=== PATIENT | male | born 1995 | race Caucasian/White ===

== ENCOUNTER 2020-03-12 09:24 | Outpatient (CLI) | payer OTHER, SELFPAY ==
--- NOTE | ~2020-03-12 | XR_ITS ---
EXAMINATION: XR chest 2V 03/12/2020 09:57 INDICATION: Shortness of breath, cough and chest pain PROCEDURE: 2 view chest COMPARISON: Comparison to multiple prior studies sequentially, with oldest reviewed study dated 12/18. FINDINGS: The lungs are clear. The cardiomediastinal silhouette is within normal limits. There are no pleural effusions. There is no pneumothorax suspected. IMPRESSION: 1: NO ACUTE CARDIOPULMONARY DISEASE. Reviewed, dictated and finalized at location B.
== END 2020-03-12 09:25 | disposition home or self-care (01) ==
LOC: ANHIMG 09:31
PROVIDERS: PCP Nurse Practitioner Family; Visit Provider Nurse Practitioner Family
DX: R06.02 Shortness of breath (principal); R05 Cough
CPT/HCPCS: 71046

== ENCOUNTER 2023-08-05 17:49 | Emergency (ER) | payer OTHER, MEDICAID, SELFPAY ==
[2023-08-05] VITALS (7 sets, daily range): BP systolic 132–140; BP diastolic 87–109; PULSE 87–104; RESP 11–26; TEMP 35.7; O2SAT 97–100
--- NOTE | 2023-08-05 | ECG_ITS ---
Measurements Intervals [place] Rate: 91 P: 38 CO: 163 QRS: 10 QRSD: 100 T: 0 QT: 338 QTc: 417 Interpretive Statements SINUS RHYTHM CONSIDER INFERIOR INFARCT, AGE INDETERMINATE BASELINE ARTIFACT- V1 ABNORMAL ECG COMPARED TO ECG 08/05/2023 17:57:25 NO SIGNIFICANT CHANGES Electronically Signed On 08-06-2023 17:40:59 CDT by Eusebio Mirza D.O.
--- NOTE | 2023-08-05 18:00 | ECG_ITS ---
Measurements Intervals [place] Rate: 86 P: -14 MT: 140 QRS: -24 QRSD: 90 T: -10 QT: 385 QTc: 461 Interpretive Statements SINUS RHYTHM VOLTAGE CRITERIA FOR LVH MINIMAL Q WAVES- HIGH LATERAL LEADS BASELINE WANDER- I, III, V4-V6 BORDERLINE ECG COMPARISON TO PRIOR ECG 12-06-18 16:32 SINUS RHYTHM NOW PRESENT Electronically Signed On 08-06-2023 7:44:11 CDT by Eusebio Mirza D.O.
[2023-08-05 18:10] LABS: Basophils Absolute Auto 0.1 K/mm3 (0.0-0.1); Basophils Percent Auto 0.5 % (0.2-1.2); Eosinophils Absolute Auto 0.2 K/mm3 (0-0.3); Eosinophils Percent Auto 0.7 % (0-4.4); Hematocrit 51.6 % (42.0-52.0); Hemoglobin 16.4 g/dL (14.0-18.0); Immature Granulocyte Percent A 0.9 % (0-0.5); Lymphocytes Absolute Auto 1.37 K/mm3 (0.9-3.2); Mean Corpuscular HGB Conc 31.8 g/dl (32-36); Mean Corpuscular Hemoglobin 29.4 pg (26-34); Mean Corpuscular Volume 92.6 fl (80-100); Mean Platelet Volume 10.7 fl (7.4-10.4); Monocytes Absolute Auto 1.2 K/mm3 (0.1-0.6); Monocytes Percent Auto 5.4 % (2.6-8.5); Neutrophils Absolute Auto 19.8 K/mm3 (1.3-6.7); Neutrophils Percent Auto 86.5 % (45.5-73.1); Platelet Count Result 311 k/mm3 (150-375); Red Blood Count 5.57 M/mm3 (4.6-6.20); Red Cell Distribution Width 13.2 % (11.5-14.5); White Blood Count 22.9 K/mm3 (4.5-10.0)
[2023-08-05 18:19] LABS: Alanine Aminotransferase 40 U/L (6-50); Albumin Level 5.2 g/dL (3.5-5.1); Alkaline Phosphatase 76 U/L (38-126); Anion Gap 18 mmol/L (8-16); Aspartate Amino Transferase 56 U/L (17-59); Bilirubin,Total 0.5 mg/dL (0.2-1.3); Blood Urea Nitrogen 16 mg/dL (9-20); Carbon Dioxide 21 mmol/L (22-30); Chloride 101 mmol/L (98-107); Estimated CRCL calculation 83 ml/min; Estimated Glomerular Filt Rate > 60; Glucose 220 mg/dL (65-110); Potassium 4.2 mmol/L (3.4-5.0); Sodium 140 mmol/L (137-145)
--- NOTE | 2023-08-05 18:42 | ED.GENADULT ---
HPI - General Adult General Chief complaint: Overdose <Naveen Thomas MD - Last Filed: 08/05/23 18:48> Stated complaint: drug usage - narcan given <Naveen Thomas MD - Last Filed: 08/05/23 18:48> Time Seen by Provider: 08/05/23 17:53 <Naveen Thomas MD - Last Filed: 08/05/23 18:48> History of Present Illness HPI narrative: 27-year-old with a history of opiate abuse with the above in from home. He was found unresponsive in his house by his dad later called 911 he did receive a 8 mg of nasal Narcan. Upon arrival patient is alert complaining of nausea. He states that he snorted fentanyl this afternoon. <Naveen Thomas MD - Last Filed: 08/05/23 18:48> Related Data Allergies/adverse reactions: Allergies Allergy/AdvReac Type Severity Reaction Status Date / Time No Known Allergies Allergy Unverified 12/17/18 18:15 <Naveen Thomas MD - Last Filed: 08/05/23 18:48> Review of Systems Review of Systems: All systems reviewed & are unremarkable except as noted in HPI and below <Naveen Thomas MD - Last Filed: 08/05/23 18:48> Constitutional: Constitutional: Reports no additional constitutional complaints <Naveen Thomas MD - Last Filed: 08/05/23 18:48> Eyes: Eyes: Reports no additional eye complaints <Naveen Thomas MD - Last Filed: 08/05/23 18:48> ENT: Reports system reviewed and no additional complaints, except as documented <Naveen Thomas MD - Last Filed: 08/05/23 18:48> Cardiovascular: Cardiovascular: Reports no additional cardiovascular complaints <Naveen Thomas MD - Last Filed: 08/05/23 18:48> Respiratory: Respiratory: Reports no additional respiratory complaints <Naveen Thomas MD - Last Filed: 08/05/23 18:48> Gastrointestinal: Gastrointestinal: Reports nausea <Naveen Thomas MD - Last Filed: 08/05/23 18:48> Musculoskeletal: Musculoskeletal: Reports no additional musculoskeletal complaints <Naveen Thomas MD - Last Filed: 08/05/23 18:48> Integumentary/Breasts: Skin/Breast: Reports system reviewed and no additional complaints, except as docu <Naveen Thomas MD - Last Filed: 08/05/23 18:48> PMFSH Social History Social History: Social History Substance use type: inhalants <Naveen Thomas MD - Last Filed: 08/05/23 18:48> Exam Narrative: GENERAL: Irritable, well-nourished, and in no acute distress. HEAD: Normocephalic, atraumatic. EYES: PERRLA and EOMI. ENT: Nares clear, no rhinorrhea or epistaxis. Mucous membranes moist. NECK: Supple. CHEST: Clear to auscultation. No respiratory distress. HEART: Regular rate and rhythm. No murmur heard. Normal peripheral pulses. ABDOMEN: Soft, nontender, nondistended, normal active bowel sounds. EXTREMITIES: Normal range of motion. No edema. SKIN: Warm, dry, no rash. NEURO: No focal deficits. Alert and oriented x3. PSYCH: Normal mood and affect. <Naveen Thomas MD - Last Filed: 08/05/23 18:48> Course Vital Signs Vital signs: Vital Signs Temperature 35.7 C L 08/05/23 17:50 Pulse Rate 104 H 08/05/23 17:50 Respiratory Rate 18 08/05/23 17:50 Blood Pressure 140/109 H 08/05/23 17:50 Pulse Oximetry 100 08/05/23 17:50 Oxygen Delivery Room Air 08/05/23 17:50 Temperature 35.7 C L 08/05/23 17:50 Pulse Rate 104 H 08/05/23 17:50 Respiratory Rate 17 08/05/23 18:02 Blood Pressure 140/109 H 08/05/23 17:50 Pulse Oximetry 100 08/05/23 17:50 Oxygen Delivery Room Air 08/05/23 18:01 <Naveen Thomas MD - Last Filed: 08/05/23 18:48> Vital Signs Temperature 35.7 C L 08/05/23 17:50 Pulse Rate 104 H 08/05/23 17:50 Respiratory Rate 18 08/05/23 17:50 Blood Pressure 140/109 H 08/05/23 17:50 Pulse Oximetry 100 08/05/23 17:50 Oxygen Delivery Room Air 08/05/23 17:50 Temperature 35.7 C L 08/05/23 17:50 Pulse Rate 104 H 08/05/23 17:50 Respiratory Rate 17 08/05/23 18:02 Blood Pressure 140/109
--- NOTE | 2023-08-05 19:16 | PC.NURSE ---
Pt AOx4, able to ambulate, and ready for DC. Jake notified. Pts dad called to come get him- no answer.
== END 2023-08-05 19:44 | disposition home or self-care (01) ==
PROVIDERS: Family Medicine; Emergency Provider Emergency Medicine; PCP Nurse Practitioner Family
DX: T40.411A Poisoning by fentanyl or fentanyl analogs, accidental (unintentional), initial encounter (principal); R94.31 Abnormal electrocardiogram [ECG] [EKG]
CPT/HCPCS: 36415; 80053; 85025; 93005; 99284

== ENCOUNTER 2024-11-28 11:42 | Emergency (ER) | payer OTHER, SELFPAY ==
[2024-11-28] VITALS (12 sets, daily range): BP systolic 117–145; BP diastolic 77–98; PULSE 92–120; RESP 13–22; TEMP 36.9; O2SAT 93–98
--- NOTE | ~2024-11-28 | CT_ITS ---
CLINICAL INDICATION: Abdominal pain, hemoptysis and leukocytosis COMPARISON: 03/12/2020. TECHNIQUE: Multiple contiguous axial images of the chest was performed without the administration of intravenous contrast. This CT examination was performed utilizing dose reduction techniques. DLP: 149 mGy-cm FINDINGS/OBSERVATIONS: LUNG:Patchy groundglass opacification within the bilateral upper, right middle and left lower lobes f or which multifocal pneumonia is suspected. HEART: The heart is of normal size, without pericardial effusion. MEDIASTINUM: No pathologically enlarged or morphologically suspicious lymph nodes are identified within the medias tinum, bilateral axilla, within the soft tissues of the anterior chest wall. SOFT TISSUES OF THE CHEST: Unremarkable. BONES OF THE CHEST: No acute fracture. No lytic or blastic lesions are identified. IMPRESSION: Multifocal pneumonia, as detailed above. Reviewed, dictated and finalized at location A.
--- NOTE | ~2024-11-28 | CT_ITS ---
CT of the Abdomen and Pelvis: Indication: Abdominal pain, hemoptysis Technique: 2.5 mm axial scans were obtained through the abdomen and pelvis following intravenous adm inistration of 100 cc of Omnipaque 350. Dose reduction technique was used on this scan by utilizing a utomated exposure control and iterative reconstruction technique. The dose-length product (DLP) was 1 81.85 mGy-cm. Findings: Scans through the lung bases demonstrate patchy consolidation the visualized right middle lobe, lingula, and left lower lobe. There is minimal involvement of the visualized right lower lobe. The liver, spleen, pancreas, gallbladder, adrenals and kidneys are within normal limits. No evidence of aortic aneurysm. No lymphadenopathy. No bowel obstruction or bowel wall thickening. There is no evidence to suggest acute appendicitis. Images through the pelvis were performed. Urinary bladder unremarkable. No pelvic mass seen. No ascit es. Impression: Patchy pneumonia in the visualized lungs, as detailed above. Consider dedicated chest CT as indicated . No other significant findings in the abdomen or pelvis. Reviewed, dictated and finalized at [facility]. Impression: Patchy pneumonia in the visualized lungs, as detailed above. Consider dedicated chest CT as indicated. No other significant findings in the abdomen or pelvis.
--- OUTSIDE RECORDS SUMMARY | 2024-11-28 11:45 | XMS_ITS | Clinical Summary ---
Author Organization [facility] Address [facility] [place] [address] Care Team Providers Care Pump Stitcher Name Role Phone Deanna Harrison [facility] Primary Care Provider + Allergies No known active allergies Medications capsaicin 0.025 % creamIndications :Neuropathic pain Apply topically 3 (three) times daily. 1 g 9 Active gabapentin 300 MG capsuleIndicatio ns:Right foot drop [The details of the medication are not available because there are pending changes by a home health clinician.] 240 capsule 9 Active Additional Information Patient taking differently:, 2 tabs po qAM, 2 tabs po midday and 4 tabs po QHS,Indications: Neuropathic pain, Reported on 01/25/2019 Ketorolac Tromethamine (TORADOL ORAL OR)Indications:P ain Take 10 mg by mouth every 6 (six) hours as needed (Pain). 9 Active traMADol 50 MG tabletIndication s:Pain Take 50 mg by mouth 2 (two) times daily. Take one tablet by mouth twice daily. 9 Active cyclobenzaprine 10 MG tabletIndication s:Muscle Spasm Take 10 mg by mouth 3 (three) times a day. 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 Social History Tobacco Use Types Packs/Day Years Used Date Smoking Tobacco: Never Assessed Sex and Gender Information Value Date Recorded Sex Assigned at Not on file Legal Sex Male 2:28 PM CDT Gender Identity Not on file Sexual Orientation Not on file Last Filed Vital Signs Vital Sign Reading Time Taken Comments Blood Pressure 120/84 02/19/2019 3:03 PM CDT Pulse 106 02/19/2019 3:03 PM CDT Temperature 36.9 C (98.4 F) 02/19/2019 3:03 PM CDT Respiratory Rate 18 02/19/2019 3:03 PM CDT Oxygen Saturation 98% 02/15/2019 2:30 PM CDT Inhaled Oxygen Concentration - - Weight 56.7 kg (125 lb) 02/08/2019 1:50 PM CDT Height 185.4 cm (6' 1) 01/12/2019 5:00 PM CDT Body Mass Index 16.49 01/12/2019 5:00 PM CDT Plan of Treatment Health Maintenance Due Date Last Done Comments Annual Physical 09/01/1999 Hepatitis C 2014 DTaP, Tdap and Td Vaccines ( 1 - Tdap) 09/01/2015 Hepatitis B Vaccines (1 of 3 - 19+ 3-dose series) 09/01/2015 COVID-19 Vaccine ( - 2023-2 5 season) 2024 Pneumococcal Vaccine: Pediat rics (0 to 5 Years) and At-Risk Patients (6 to 49 Years) Aged Out 01/06/2019 No longer eligi ble based on patient's age to complete this topic HPV Vaccines Aged Out No longer eligi ble based on patient's age to complete this topic Meningococcal B Vaccine Aged Out No l onger eligible based on patient's age to complete this topic Meningococcal Vaccine Aged Out No katharina umair eligible based on patient's age to complete this topic RSV Immunizations Under 20 Months Aged Out No longer eligible based on patient's age to complete this topic Insurance ID[employer] Advance Directives * Full Code (Latest Code Status on File) Date Activated Date Inactivated Comments 01/12/2019 6:05 PM 01/19/2019 2:31 PM Care Teams Pump Stitcher Relationship Specialty Start Date End Date Deanna Harrison, [employer] [address] [phone] PCP - General NURSE PRACTITIONER 02/06/19
--- OUTSIDE RECORDS SUMMARY | 2024-11-28 11:45 | XMS_ITS | Clinical Summary ---
Author Organization [facility] Address [address] [place] [address] Care Team Providers Care Clinical Nursing Coordinator Name Role Phone Unavailable Primary Care Provider Unavailabl e Source Comments [facility],non-owned Affiliates and Associated Physician Practices is amultiple site organization consisting of ambulatory clinics and hospital sitesin [place], [place], [place] and [place]. This disclosure is being madepursuant to the Care Everywhere program and may not contain all information available regarding this patient. Last updated 18.[facility] Allergies No known active allergies Medications * Be aware that medications may not be up to date on this document. Alwaysverify current medications with the patient. hydrOXYzine hcl (ATARAX) 25 MG tablet Take 1 tablet by mouth 4 times daily as needed 9 Active acetaminophen (TYLENOL) 325 MG tablet Take 1 tablet by mouth every 4 hours as needed Maximum allowable Acetaminophen amount = 4 Grams (4000 mg) / 24 hours. 9 Active gabapentin (NEURONTIN) 100 MG capsule Take 1 capsule by mouth 3 times daily 9 Active polyethylene glycol 3350 (MIRALAX) packet 17 g by Enteral Tube route once daily 9 Active melatonin 3 MG tablet Take 1 tablet by mouth nightly as needed for Insomnia 9 Active Active Problems Problem Noted Date Diagnosed Date Attention to tracheostomy tube 12/28/2018 Acute respiratory failure with hypoxia 9 Immunizations Immunization Administration Dates Next Due PNEUMOCOCCAL PPSV23 01/06/2019 Family History Medical History Relation Name Comments Cancer - Colon Paternal Grandfather Alzheimer's Disease Paternal Grandmother Relation Name Status Comments Paternal Grandfather Paternal Grandmother Social History Tobacco Use Types Packs/Day Years Used Date Smoking Tobacco: Every Day Cigarettes Smokeless Tobacco: Never Alcohol Use Standard Drinks/Week Comments Yes 0 (1 standard drink = 0.6 oz pur e alcohol) occasionally Sex and Gender Information Value Date Recorded Sex Assigned at Not on file Legal Sex Male 3:54 PM CDT Gender Identity Not on file Sexual Orientation Not on file Last Filed Vital Signs Vital Sign Reading Time Taken Comments Blood Pressure 149/96 01/12/2019 3:56 PM CDT Pulse 97 01/12/2019 3:56 PM CDT Temperature 36.6 C (97.8 F) 01/12/2019 3:56 PM CDT Respiratory Rate 20 01/12/2019 3:56 PM CDT Oxygen Saturation 100% 01/12/2019 3:56 PM CDT Inhaled Oxygen Concentration 21% 01/05/2019 4 :00 PM CDT Weight 48.1 kg (106 lb 0.7 oz) 01/05/2019 8:00 A M CDT Height 182.9 cm (6' 0.01) 01/05/2019 8:00 AM CD T Body Mass Index 14.38 01/05/2019 8:00 AM CDT Plan of Treatment Health Maintenance Due Date Last Done Comments HEPATITIS C SCREENING 08/27/2014 DTAP/TDAP/TD VACCINES (1 - Tdap) 09/01/2015 HEPATITIS B VACCINE (1 of 3 - 19+ 3-dose series) 09/01/2015 COVID-19 VACCINE ( - 2023-2 5 season) 2024 DEPRESSION SCREENING 05/23/2024 INFLUENZA VACCINE (#1) 2025 ZOSTER VACCINE (1 of 2) 2046 PNEUMOCOCCAL VACCINE Aged Out 01/06/2019 No long er eligible based on patient's age to complete this topic HIV SCREENING Completed 01/12/2019, 01/10/2019, 01/08/2019 HIB VACCINE Aged Out No longer eligi ble based on patient's age to complete this topic HPV VACCINE Aged Out No longer eligi ble based on patient's age to complete this topic MENINGOCOCCAL (Group B) VACCINE SHARED DECISION-MAKING Aged Out No longer eligible based on patient's age to complete this topic MENINGOCOCCAL GROUPS A/C/Y/W VACCINE Aged Out No longer eligible b ased on patient's age to complete this topic Procedures Procedure Name Priority Date/Time Associated Diagnosis Comments HIV-1 HIV-2 ANTIGEN/ANTIBODY AM Draw 01/12/2019 7:36 AM CDT from Last 3 Months or Most Recently Relevant to Health Maintenance Results * HIV-1 HIV-2 ANTIGEN/ANTIBODY (01/12/2019 7:36 AM CDT) HIV Antigen/Antibod y 1 & 2 Non-reacti ve Non-react danny 01/12/2019 8:32 AM CDT [facility] Comment: Neither HIV-1 p24 Antigen nor HIV-1/HIV-2 Antibodies are detected. Blood BLOOD SPECIMEN / Unknown Lab Venipuncture / Unknown 01/12/2019 7:36 AM CDT 01/12/2019 7:46 AM CDT us Santo Stapleton MD LAB - HEMATOLOGY ORDERABLES Fi nal Result Performing Organization Address City/State/[facility] Co de Phone Number [address] [phone] from Last 3 Months or Most Recently Relevant to Health Maintenance Insurance Advance Directives * Full Code (Latest Code Status on File) Date Activated Date Inactivated Comments 12/28/2018 6:30 AM 01/12/2019 5:50 PM
--- NOTE | 2024-11-28 12:13 | ED.GENADULT ---
HPI - General Adult General Chief complaint: Abdominal Pain Stated complaint: multiple complaints, fentanyl withdrawal? Time Seen by Provider: 11/28/24 12:00 History of Present Illness HPI narrative: 29-year-old male with history of methamphetamine and fentanyl abuse present to the emergency department for evaluation nausea vomiting generalized body aches. Patient states he has not used methamphetamine or fentanyl the past 2-3 days. Patient is unsure if he is going to seek rehab at this time. Patient states he has been coughing up thick mucus and has been spitting up some blood. Does have some abdominal tenderness to palpation but patient also does complain of myalgias. Patient reports decreased p.o. intake. Related Data Allergies Allergy/AdvReac Type Severity Reaction Status Date / Time amoxicillin Allergy Mild Rash Verified 11/28/24 13:49 Review of Systems Review of Systems: All systems reviewed & are unremarkable except as noted in HPI and below PMFSH Social History Social History Substance use type: inhalants Exam Narrative: APPEARANCE: Cachectic-appearing HEAD: normocephalic, atraumatic. EYES: PERRLA/EOMI, conjunctivae clear. NOSE: Normal no drainage EARS:TMS clear with good light reflex. THROAT: Pharynx clear, no exudate. NECK: Supple. No adenopathy, no masses. RESPIRATORY: Airway patent, respirations nonlabored. Clear to auscultation bilaterally, no rales, rhonchi, wheezing. CARDIOVASCULAR: Tachycardia ABDOMINAL: Diffuse abdominal tenderness to palpation MUSCULOSKELETAL: Moves all extremities. Strength/ROM intact, No edema, No calf tenderness. NEURO: Alert. Cranial nerves II through XII intact. Grossly intact SKIN: Warm, dry. Normal Color Course Vital Signs Vital signs: Vital Signs Pulse Rate 102 H 11/28/24 11:47 Respiratory Rate 16 11/28/24 11:47 Pulse Oximetry 95 11/28/24 11:47 Temperature 98.4 F 11/28/24 11:50 Pulse Rate 115 H 11/28/24 15:03 Respiratory Rate 22 H 11/28/24 15:03 Blood Pressure 117/77 11/28/24 15:03 Pulse Oximetry 97 11/28/24 15:03 Oxygen Delivery Room Air 11/28/24 11:50 Medical Decision Making [facility] Narrative Medical decision making narrative: 29-year-old male present to the emergency department for evaluation low-grade fever, abdominal pain and concern for opiate and amphetamine withdrawal. Patient is currently afebrile but does have a leukocytosis of 17.5 and hemoglobin of 16.5. Patient has an INR of 1.5, patient does have mild elevations in ALT and AST with normal lipase and normal T bili. UA was negative for infection. Patient was positive for strep and CT scan was concerning for pneumonia. Patient does have an underlying allergy to Augmentin. Patient was started on the mycin to help cover strep throat and addition to Omnicef to cover for the community-acquired pneumonia. Patient was updated results of his workup patient is comfortable plan for discharge home. Differential Diagnosis Differential Diagnosis: Pneumonia, COVID, RSV, influenza, strep throat, UTI, colitis, diverticulitis Vital Signs Vital Signs: Vital Signs Pulse Rate 102 H 11/28/24 11:47 Respiratory Rate 16 11/28/24 11:47 Pulse Oximetry 95 11/28/24 11:47 Temperature 98.4 F 11/28/24 11:50 Pulse Rate 115 H 11/28/24 15:03 Respiratory Rate 22 H 11/28/24 15:03 Blood Pressure 117/77 11/28/24 15:03 Pulse Oximetry 97 11/28/24 15:03 Oxygen Delivery Room Air 11/28/24 11:50 Lab Data Lab results reviewed: Yes I reviewed the patient's lab results. 11/28/24 12:04 11/28/24 12:04 Labs: Lab Results 11/28/24 11/28/24 11/28/24 Range/Units 12:04 12:40 12:41 WBC 17.5 H (4.5-10.0) K/mm3 RBC 5.72 (4.6-6.20) M/mm3 Hgb 16.5 (14.0-18.0) g/dL Hct 49.5 (42.0-52.0) % MCV 86.5 (80-100) fl MCH 28.8 (26-34) pg MCHC 33.3 (32-36) g/dl RDW 12.7 (11.5-14.5) % Plt Count 276 (150-375) k/mm3 MPV 11.4 H (7.4-10.4) fl Immature Gran % (Auto) 0.4 (0-0.5) % Neut % (Auto) 82.9 H (45.5-73.1) % Lymph % (Auto) 9.8 L (18.3-44.2) % [place] % (Auto) 6.3 (2.6-8.5) % Eos % (Auto) 0.1 (0-4.4) % Baso % (Auto) 0.5 (0.2-1.2) % Lymph # (Auto) 1.72 (0.9-3.2) K/mm3 [place] # (Auto) 1.1 H (0.1-0.6) K/mm3 Eos # (Auto) 0.0 (0-0.3) K/mm3 Baso # (Auto) 0.1 (0.0-0.1) K/mm3 Abs Immat Gran (auto) 0.07 H (0.00-0.031) K/mm3 Absolute Neuts (auto) 14.5 H (1.3-6.7) K/mm3 Absolute Nucleated RBC 0.000 (0.0-0.012) K/mm3 Nucleated RBC % 0.0 (0.0-0.2) % PT 17.7 H (11.1-14.7) Seconds INR 1.5 APTT 30.6 (22.3-36.8) Seconds Sodium 137 (137-145) mmol/L Potassium 4.4 (3.4-5.0) mmol/L Chloride 98 (98-107) mmol/L Carbon Dioxide 30 (22-30) mmol/L Anion Gap 9 (4-12) mmol/L BUN 17 (9-20) mg/dL Creatinine 0.81 (0.7-1.3) mg/dL Estim Creat Clear Calc 95 ml/min Estimated GFR > 60 (59 - ) Glucose 100 (65-110) mg/dL Calcium 9.0 (8.4-10.2) mg/dL Total Bilirubin 0.9 (0.2-1.3) mg/dL AST 279 H (17-59) U/L ALT 277 H (6-50) U/L Alkaline Phosphatase 85 (38-126) U/L Total Protein 7.3 (6.3-8.2) g/dL Albumin 4.5 (3.5-5.1) g/dL Lipase 58 (23-300) U/L Urine Color (Yellow) Urine Appearance (Clear) Urine pH (5.0-9.0) Ur Specific [place] (1.001-1.035) Urine Protein (Negative) mg/dL Urine Glucose (UA) (Negative) mg/dL Urine Ketones (Negative) mg/dL Ur Blood (Man) (Negative) Urine Nitrate (Negative) Urine Bilirubin (Negative) Urine Urobilinogen (<2.0) mg/dL Leukocyte Esterase Rfl (Negative) MYRA/UL Urine RBC (0-2) /hpf Urine WBC (0-3) /hpf Ur Squamous Epith Cells (Few) /hpf Urine Bacteria /hpf Urine Casts Influenza A (RT-PCR) Negative (Negative) Influenza B (RT-PCR) Negative (Negative) RSV (RT-PCR) Negative (Negative) SARS-CoV-2 RNA (RT-PCR) Negative (Negative) Group A Strep (PCR) Detected A (Negative) 11/28/24 Range/Units 14:31 WBC (4.5-10.0) K/mm3 RBC (4.6-6.20) M/mm3 Hgb (14.0-18.0) g/dL Hct (42.0-52.0) % MCV (80-100) fl MCH (26-34) pg MCHC (32-36) g/dl RDW (11.5-14.5) % Plt Count (150-375) k/mm3 MPV (7.4-10.4) fl Immature Gran % (Auto) (0-0.5) % Neut % (Auto) (45.5-73.1) % Lymph % (Auto) (18.3-44.2) % [place] % (Auto) (2.6-8.5) % Eos % (Auto) (0-4.4) % Baso % (Auto) (0.2-1.2) % Lymph # (Auto) (0.9-3.2) K/mm3 [place] # (Auto) (0.1-0.6) K/mm3 Eos # (Auto) (0-0.3) K/mm3 Baso # (Auto) (0.0-0.1) K/mm3 Abs Immat Gran (auto) (0.00-0.031) K/mm3 Absolute Neuts (auto) (1.3-6.7) K/mm3 Absolute Nucleated RBC (0.0-0.012) K/mm3 Nucleated RBC % (0.0-0.2) % PT (11.1-14.7) Seconds INR APTT (22.3-36.8) Seconds Sodium (137-145) mmol/L Potassium (3.4-5.0) mmol/L Chloride (98-107) mmol/L Carbon Dioxide (22-30) mmol/L Anion Gap (4-12) mmol/L BUN (9-20) mg/dL Creatinine (0.7-1.3) mg/dL Estim Creat Clear Calc ml/min Estimated GFR (59 - ) Glucose (65-110) mg/dL Calcium (8.4-10.2) mg/dL Total Bilirubin (0.2-1.3) mg/dL AST (17-59) U/L ALT (6-50) U/L Alkaline Phosphatase (38-126) U/L Total Protein (6.3-8.2) g/dL Albumin (3.5-5.1) g/dL Lipase (23-300) U/L Urine Color Yellow (Yellow) Urine Appearance Clear (Clear) Urine pH 6.5 (5.0-9.0) Ur Specific [place] > 1.045 H (1.001-1.035) Urine Protein Trace (Negative) mg/dL Urine Glucose (UA) Negative (Negative) mg/dL Urine Ketones Trace H (Negative) mg/dL Ur Blood (Man) Negative (Negative) Urine Nitrate Negative (Negative) Urine Bilirubin Negative (Negative) Urine Urobilinogen 1.0 (<2.0) mg/dL Leukocyte Esterase Rfl Negative (Negative) MYRA/UL Urine RBC 0-2 (0-2) /hpf Urine WBC 0-5 (0-3) /hpf Ur Squamous Epith Cells None seen (Few) /hpf Urine Bacteria None seen /hpf Urine Casts 0-2 Influenza A (RT-PCR) (Negative) Influenza B (RT-PCR) (Negative) RSV (RT-PCR) (Negative) SARS-CoV-2 RNA (RT-PCR) (Negative) Group A Strep (PCR) (Negative) Imaging Data Radiologist's impression: Impressions Abdomen/Pelvis CT 11/28/24 13:04 Impression: Patchy pneumonia in the visualized lungs, as detailed above. Consider dedicated chest CT as indicated. No other significant findings in the abdomen or pelvis. Chest CT 11/28/24 14:21 IMPRESSION: Multifocal pneumonia, as detailed above. Discharge Plan Discharge Clinical Impression: Strep throat, Pneumonia Patient Disposition: Home Condition: Stable Instructions: Antibiotic Form, Strep Throat (ED), Bacterial Pneumonia (DC) Additional Instructions: Continue to avoid fentanyl and methamphetamine. Take acetaminophen and ibuprofen for pain control. Antibiotics as directed until completed. Have close follow-up with your primary care physician. If you have any worsening symptoms then please call or return to the emergency department. Patient Language: Mexican Prescriptions: New azithromycin 250 mg tablet See Rx Instructions .ROUTE .COMPLEX Qty: 6 0RF Rx Instructions: For 250 mg dose pack: take 500 mg today (day 1), then 250 mg for 4 days (days 2-5) cefdinir 300 mg capsule 300 mg PO Q12H 7 Days Qty: 14 0RF No Action naloxone [Narcan] 4 mg/actuation spray,non-aerosol 4 mg intranasal Q2M PRN (Reason: opioid overdose) Qty: 2 0RF Rx Instructions: spray 1 dose into ONE nostril; alternate nostrils w each dose until help arrives Follow-up/Referrals: Deanna Harrison APRN [Primary Care Provider] -
--- OUTSIDE RECORDS SUMMARY | 2024-11-28 12:19 | XMS_ITS | Clinical Summary ---
Author Organization [facility] Address [address] [place] [address] Care Team Providers Care Cigar Packing Examiner Name Role Phone Unavailable Primary Care Provider Unavailabl e Source Comments [facility],non-owned Affiliates and Associated Physician Practices is amultiple site organization consisting of ambulatory clinics and hospital sitesin [place], [place], [place] and [place]. This disclosure is being madepursuant to the Care Everywhere program and may not contain all information available regarding this patient. Last updated 18.[facility] Allergies No known active allergies Medications * [...] ve Non-react danny 01/12/2019 8:32 AM CDT [facility] Comment: Neither HIV-1 p24 Antigen nor HIV-1/HIV-2 Antibodies are detected. Blood BLOOD SPECIMEN / Unknown Lab Venipuncture / Unknown 01/12/2019 7:36 AM CDT 01/12/2019 7:46 AM CDT us Santo Stapleton MD LAB - HEMATOLOGY ORDERABLES Fi nal Result Performing Organization Address City/State/[facility] Co de Phone Number [address] [phone] from Last 3 Months or Most Recently Relevant to Health Maintenance Insurance Advance Directives * Full Code (Latest Code Status on File) Date Activated Date Inactivated Comments 12/28/2018 6:30 AM 01/12/2019 5:50 PM
--- OUTSIDE RECORDS SUMMARY | 2024-11-28 12:19 | XMS_ITS | Clinical Summary ---
Author Organization [facility] Address [facility] [place] [address] Care Team Providers Care Carpet Jack Name Role Phone Deanna Harrison [facility] Primary Care Provider + Allergies No [...] 6:05 PM 01/19/2019 2:31 PM Care Teams Carpet Jack Relationship Specialty Start Date End Date Deanna Harrison, SUMMER LAW ASSOCIATE-BC [address] [phone] PCP - General NURSE PRACTITIONER 02/06/19
[2024-11-28 12:20] LABS: Hematocrit 49.5 % (42.0-52.0); Hemoglobin 16.5 g/dL (14.0-18.0); Immature Granulocyte Percent A 0.4 % (0-0.5); Lymphocytes Absolute Auto 1.72 K/mm3 (0.9-3.2); Mean Corpuscular HGB Conc 33.3 g/dl (32-36); Mean Corpuscular Hemoglobin 28.8 pg (26-34); Mean Corpuscular Volume 86.5 fl (80-100); Nucleated Red Blood Cells Absolute Auto 0.000 K/mm3 (0.0-0.012); Nucleated Red Blood Cells Perc 0.0 % (0.0-0.2); Platelet Count Result 276 k/mm3 (150-375); Red Blood Count 5.72 M/mm3 (4.6-6.20); White Blood Count 17.5 K/mm3 (4.5-10.0)
[2024-11-28] MEDS: ONDANSETRON INJ 4 MG/2 ML VIAL IV PUSH (12:25)
[2024-11-28] MEDS: PANTOPRAZOLE SODIUM IV 40 MG VIAL IV PUSH (12:25)
[2024-11-28] MEDS: LACTATED RINGERS 2,000 ML 999 ML IV CONT (12:25)
[2024-11-28] MEDS: KETOROLAC 30 MG/ML VIAL (*BKC) IV PUSH (12:25)
[2024-11-28 12:30] LABS: Alanine Aminotransferase 277 U/L (6-50); Albumin Level 4.5 g/dL (3.5-5.1); Alkaline Phosphatase 85 U/L (38-126); Anion Gap 9 mmol/L (4-12); Aspartate Amino Transferase 279 U/L (17-59); Bilirubin,Total 0.9 mg/dL (0.2-1.3); Blood Urea Nitrogen 17 mg/dL (9-20); Calcium 9.0 mg/dL (8.4-10.2); Carbon Dioxide 30 mmol/L (22-30); Chloride 98 mmol/L (98-107); Estimated CRCL calculation 95 ml/min; Estimated Glomerular Filt Rate > 60; Glucose 100 mg/dL (65-110); Lipase 58 U/L (23-300); Potassium 4.4 mmol/L (3.4-5.0); Sodium 137 mmol/L (137-145); Total Protein 7.3 g/dL (6.3-8.2)
[2024-11-28 12:45] LABS: INR 1.5; Prothrombin Time 17.7 Seconds (11.1-14.7)
[2024-11-28 12:46] LABS: Partial Thromboplastin Time 30.6 Seconds (22.3-36.8)
[2024-11-28 13:09] LABS: Strep Group A RT-PCR DETECTED (Negative)
[2024-11-28 13:21] LABS: Influenza A QL RT-PCR Negative (Negative); Influenza B QL RT-PCR Negative (Negative); RSV RNA, RT-PCR Negative (Negative); SARS-CoV-2 RNA PCR Negative (Negative)
--- NOTE | 2024-11-28 14:19 | PC.NURSE ---
Per EDP, no blood cultures needed.
[2024-11-28] MEDS: AZITHROMYCIN 500 MG TABLET PO (14:23)
[2024-11-28 14:52] LABS: Add Urine Microscopic? YES; Appearance Urine Clear (Clear); Glucose Urine UA Negative (Negative); Leukocyte Esterase Ur Negative LEU/UL (Negative); Nitrate Urine Negative (Negative); Non Pathogenic Casts 0-2; Specific Grav Ur > 1.045 (1.001-1.035)
[2024-11-28] MEDS: CEFDINIR 300 MG CAPSULE PO (15:03)
== END 2024-11-28 15:12 | disposition home or self-care (01) ==
PROVIDERS: Emergency Provider Emergency Medicine; PCP Nurse Practitioner Family
DX: J02.0 Streptococcal pharyngitis (principal); J18.9 Pneumonia, unspecified organism; Z20.822 Contact with and (suspected) exposure to COVID-19
CPT/HCPCS: 36415; 71260; 74177; 80053; 81001; 83690; 85025; 85610; 85730; 87637; 87651; 96361; 96374; 96375; 99284; A9270; J1885; J2405; J2470; J7120; Q9967

== ENCOUNTER 2024-12-01 04:58 | Emergency (ER) | payer OTHER, SELFPAY ==
[2024-12-01 04:56] VITALS: BP 148/78; PULSE 71; RESP 12; TEMP 36.8; O2SAT 100
--- NOTE | 2024-12-01 05:04 | PC.NURSE ---
Pt refusing blood draw at this time.
--- OUTSIDE RECORDS SUMMARY | 2024-12-01 05:15 | XMS_ITS | Clinical Summary ---
Author Organization [facility] Address [facility] [place] [address] Care Team Providers Care Manager Operational Name Role Phone Deanna Harrison [facility] Primary Care Provider + Allergies [...] 6:05 PM 01/19/2019 2:31 PM Care Teams Manager Operational Relationship Specialty Start Date End Date Deanna Harrison, SURGICAL FIRST ASSISTANT-BC [address] [phone] PCP - General NURSE PRACTITIONER 02/06/19
--- OUTSIDE RECORDS SUMMARY | 2024-12-01 05:15 | XMS_ITS | Clinical Summary ---
Author Organization [facility] Address [address] [place] [address] Care Team Providers Care Hydraulic Assembler Name Role Phone Unavailable Primary Care Provider Unavailabl e Source Comments [facility],non-owned Affiliates and Associated Physician Practices is amultiple site organization consisting of ambulatory clinics and hospital sitesin [place], [place], [place] and [place]. This disclosure is being madepursuant to the Care Everywhere program and may not contain all information available regarding this patient. Last updated 18.[facility] Allergies No known active allergies Medications * [...] ve Non-react danny 01/12/2019 8:32 AM CDT [facility] Comment: Neither HIV-1 p24 Antigen nor HIV-1/HIV-2 Antibodies are detected. Blood BLOOD SPECIMEN / Unknown Lab Venipuncture / Unknown 01/12/2019 7:36 AM CDT 01/12/2019 7:46 AM CDT us Santo Stapleton MD LAB - HEMATOLOGY ORDERABLES Fi nal Result Performing Organization Address City/State/[facility] Co de Phone Number [address] [phone] from Last 3 Months or Most Recently Relevant to Health Maintenance Insurance Advance Directives * Full Code (Latest Code Status on File) Date Activated Date Inactivated Comments 12/28/2018 6:30 AM 01/12/2019 5:50 PM
--- NOTE | 2024-12-01 05:37 | ED.ABDPAIN ---
HPI - Abdominal Pain General Chief Complaint: Abdominal Pain Stated Complaint: Abd pain x 1 day/diarrhea History of Present Illness HPI narrative: Patient presents to the emergency department this evening complaining of nausea, vomiting, diarrhea and abdominal pain. He was seen our facility yesterday and prescribed a Z-Aditya for pneumonia. Today he went home and use some fentanyl around 12:00 p.m. and was concerned that he is now withdrawing from fentanyl. Related Data Allergies Allergy/AdvReac Type Severity Reaction Status Date / Time amoxicillin Allergy Mild Rash Verified 11/28/24 13:49 Review of Systems Review of Systems: All systems are reviewed and are negative unless stated otherwise in the HPI. [facility] Social History Social History Substance use type: inhalants Exam Narrative: General: Alert, awake, afebrile, in no acute distress. HEENT: PERRL, no rhinorrhea, no post nasal drip, oropharynx clear. Neck: Trachea midline, no JVD, no lymphadenopathy. Cardiovascular: Regular rate and rhythm, no murmurs, rubs or gallops, no peripheral edema. Respiratory: Clear to auscultation bilaterally, no tachypnea, no wheezing, no rhonchi, no rubs, no respiratory distress. Abdomen: Soft, nontender, nondistended, no rebound, no guarding, no peritoneal signs. Musculoskeletal: No joint swelling or deformity, normal muscle tone. Skin: No rashes or petechia, no signs of infection. Psychiatric: Alert and oriented, normal behavior and judgment for situation. Neurological: Alert and oriented to person, place, and time. Follows all commands. No focal deficits, speech is clear and fluent. Course Vital Signs Vital signs: Vital Signs Temperature 98.2 F 12/01/24 04:56 Pulse Rate 71 12/01/24 04:56 Respiratory Rate 12 12/01/24 04:56 Blood Pressure 148/78 H 12/01/24 04:56 Pulse Oximetry 100 12/01/24 04:56 Oxygen Delivery Room Air 12/01/24 04:56 Temperature 98.2 F 12/01/24 04:56 Pulse Rate 71 12/01/24 04:56 Respiratory Rate 12 12/01/24 04:56 Blood Pressure 148/78 H 12/01/24 04:56 Pulse Oximetry 100 12/01/24 04:56 Oxygen Delivery Room Air 12/01/24 04:56 MDM - Abdominal Pain MDM Narrative Medical decision making narrative: The patient was evaluated by myself in the emergency department. History is obtained from patient who is an independent historian and physical exam was performed. External medical records were reviewed at this time. IV was established and pertinent tests were ordered. At this time, patient is requesting narcotic/or Ativan to help with his withdrawal symptoms,which I refused informing him that his vitals are stable and he is not actively vomiting. I offered to start IV fluids, administer Zofran and obtain blood work and a CT scan and at this time patient is refusing all additional treatment and wants to sign out AMA. Differential diagnosis considerations include gastroenteritis, dehydration, electrolyte derangements, polysubstance abuse, drug withdrawal. Comorbidities impacting this visit include history of polysubstance abuse. I have evaluated and discussed social determinants of health with the patient that could potentially impact subsequent diagnosis and treatment plans. Patient was discharged against medical advice. Discharge Plan Discharge Clinical Impression: Substance abuse Patient Disposition: Left Against Medical Advice Condition: Stable Patient Language: Grenadian Prescriptions: No Action naloxone [Narcan] 4 mg/actuation spray,non-aerosol 4 mg intranasal Q2M PRN (Reason: opioid overdose) Qty: 2 0RF Rx Instructions: spray 1 dose into ONE nostril; alternate nostrils w each dose until help arrives azithromycin 250 mg tablet See Rx Instructions .ROUTE .COMPLEX Qty: 6 0RF Rx Instructions: For 250 mg dose pack: take 500 mg today (day 1), then 250 mg for 4 days (days 2-5) cefdinir 300 mg capsule 300 mg PO Q12H 7 Days Qty: 14 0RF Follow-up/Referrals: UNKNOWN,DOCTOR [Primary Care Provider] - Time of Disposition: 05:37
== END 2024-12-01 06:08 | disposition left against medical advice (07) ==
PROVIDERS: Emergency Provider Emergency Medicine
DX: F11.10 Opioid abuse, uncomplicated (principal)
CPT/HCPCS: 99281

== ENCOUNTER 2025-01-14 05:00 | Emergency (ER) | payer OTHER, SELFPAY ==
[2025-01-14 04:58] VITALS: BP 154/121; PULSE 87; RESP 18; TEMP 36.6; O2SAT 100
[2025-01-14 05:05] VITALS: PULSE 95; RESP 12; O2SAT 100
[2025-01-14 05:10] VITALS: BP 133/85
--- NOTE | 2025-01-14 05:24 | PC.NURSE ---
This RN went into pt room at this time to start IV and get blood draw. Pt is refusing IV access and blood work at this time. MD Fregoso at bedside. Pt was able to tell us he is at [facility], his birthday, the month, and the president. Pt is A&Ox4 at this time. Pt vitals are stable. 88 hr, 99% on room air, 136/89 blood pressure, and 13 rr. MD Fregoso states she is okay with holding off IV access and blood work at this time and just to monitor pt for a couple hours and go fro there.
--- NOTE | 2025-01-14 05:24 | ED.GENADULT ---
HPI - General Adult General Chief complaint: Overdose Stated complaint: Fentanyl OD History of Present Illness HPI narrative: Patient is a 29-year-old male who presents to the emergency department this evening status post an accidental overdose. He was found down unresponsive by PD. He was given 2 doses of Narcan. Patient became responsive after the 1st dose of intranasal Narcan and then became more alert after the 2nd dose. Patient states that he bought some fentanyl for 0 dollars and used around 3:00 a.m.. States that he only took 1 cap which is his normal dose. Patient states that this was recreational, denies any suicide or homicidal ideation and states that he was not trying to harm himself. Patient states that he has multiple Narcan at 0 and doctors at just in case. Upon my assessment in the emergency department, patient is now alert and oriented to person, place, time and situation. He is refusing any blood work or imaging studies, states that he just wants to be observed at this time. Related Data Allergies Allergy/AdvReac Type Severity Reaction Status Date / Time amoxicillin Allergy Mild Rash Verified 11/28/24 13:49 Review of Systems Review of Systems: All systems are reviewed and are negative unless stated otherwise in the HPI. [facility] Social History Social History Substance use type: opiates Exam Narrative: General: Alert, awake, afebrile, in no acute distress. HEENT: PERRL, no rhinorrhea, no post nasal drip, oropharynx clear. Neck: Trachea midline, no JVD, no lymphadenopathy. Cardiovascular: Regular rate and rhythm, no murmurs, rubs or gallops, no peripheral edema. Respiratory: Clear to auscultation bilaterally, no tachypnea, no wheezing, no rhonchi, no rubs, no respiratory distress. Abdomen: Soft, nontender, nondistended, no rebound, no guarding, no peritoneal signs. Musculoskeletal: No joint swelling or deformity, normal muscle tone. Skin: No rashes or petechia, no signs of infection. Psychiatric: Alert and oriented, normal behavior and judgment for situation. Neurological: Alert and oriented to person, place, and time. Follows all commands. No focal deficits, speech is clear and fluent. Course Vital Signs Vital signs: Vital Signs Temperature 97.8 F 01/14/25 04:58 Pulse Rate 87 01/14/25 04:58 Respiratory Rate 18 01/14/25 04:58 Blood Pressure 154/121 H 01/14/25 04:58 Pulse Oximetry 100 01/14/25 04:58 Oxygen Delivery Room Air 01/14/25 04:58 Temperature 97.8 F 01/14/25 04:58 Pulse Rate 107 H 01/14/25 06:21 Respiratory Rate 18 01/14/25 06:21 Blood Pressure 138/86 01/14/25 06:21 Pulse Oximetry 99 01/14/25 06:21 Oxygen Delivery Room Air 01/14/25 05:05 Medical Decision Making MDM Narrative Medical decision making narrative: The patient was evaluated by myself in the emergency department. History is obtained from patient who is an independent historian and physical exam was performed. External medical records were reviewed at this time. Patient refuses any blood work or imaging studies. He is alert and oriented to person, place, time and situation, answering all my questions appropriately sound mind and capable of making his own medical decisions. Differential diagnosis considerations include intentional versus accidental drug overdose, polysubstance abuse. Comorbidities impacting this visit include history of polysubstance use and previous overdose. I have evaluated and discussed social determinants of health with the patient that could potentially impact subsequent diagnosis and treatment plans. On repeat assessment of the patient, reevaluation revealed that the patient is doing well and is in no acute distress. Patient symptoms have improved since he arrived to our emergency department. Repeat vital signs were all reviewed and noted to be stable. Patient was observed in the emergency department for 2 hours. He refused any blood work or imaging studies. Differential diagnosis and treatment plan were discussed with the patient at bedside. Patient agrees with discussion and after shared medical decision making agrees with discharge. All questions were answered to the patient's satisfaction. Patient will follow up with his PCP in 3-5 days. Provided with a script for Narcan auto injector. Patient was provided with strict return precautions and instructed to return to the emergency department if any new or worsening symptoms develop. The patient was discharged in stable condition. Vital Signs Vital Signs: Vital Signs Temperature 97.8 F 01/14/25 04:58 Pulse Rate 87 01/14/25 04:58 Respiratory Rate 18 01/14/25 04:58 Blood Pressure 154/121 H 01/14/25 04:58 Pulse Oximetry 100 08/25/25 04:58 Oxygen Delivery Room Air 01/14/25 04:58 Temperature 97.8 F 01/14/25 04:58 Pulse Rate 107 H 01/14/25 06:21 Respiratory Rate 18 01/14/25 06:21 Blood Pressure 138/86 01/14/25 06:21 Pulse Oximetry 99 01/14/25 06:21 Oxygen Delivery Room Air 01/14/25 05:05 Discharge Plan Discharge Clinical Impression: Drug overdose Patient Disposition: Home Condition: Improved Instructions: Antibiotic Form, Adult Overdose (ED) Additional Instructions: Please follow-up with your family doctor within the next 3-5 days. Return to the emergency department if any new or worsening symptoms develop. Patient Language: Mongolian Prescriptions: New naloxone [Narcan] 4 mg/actuation spray,non-aerosol 4 mg intranasal Q2M PRN (Reason: opioid overdose) Qty: 2 0RF Rx Instructions: spray 1 dose into ONE nostril; alternate nostrils w each dose until help arrives No Action naloxone [Narcan] 4 mg/actuation spray,non-aerosol 4 mg intranasal Q2M PRN (Reason: opioid overdose) Qty: 2 0RF Rx Instructions: spray 1 dose into ONE nostril; alternate nostrils w each dose until help arrives azithromycin 250 mg tablet See Rx Instructions .ROUTE .COMPLEX Qty: 6 0RF Rx Instructions: For 250 mg dose pack: take 500 mg today (day 1), then 250 mg for 4 days (days 2-5) cefdinir 300 mg capsule 300 mg PO Q12H 7 Days Qty: 14 0RF Follow-up/Referrals: UNKNOWN,DOCTOR [Primary Care Provider] - 3 Days Time of Disposition: 05:25
[2025-01-14 06:21] VITALS: BP 138/86; PULSE 107; RESP 18; O2SAT 99
[2025-01-14 07:07] VITALS: BP 122/80; PULSE 92; RESP 18; O2SAT 96
== END 2025-01-14 07:09 | disposition home or self-care (01) ==
LOC: ANHED 05:31
PROVIDERS: Emergency Provider Emergency Medicine
DX: T40.411A Poisoning by fentanyl or fentanyl analogs, accidental (unintentional), initial encounter (principal)
CPT/HCPCS: 99284

== ENCOUNTER 2025-04-17 15:26 | Emergency (ER) | payer OTHER, SELFPAY ==
--- OUTSIDE RECORDS SUMMARY | 2025-04-17 15:28 | XMS_ITS | Clinical Summary ---
Author Organization [facility] Address [facility] [place] [address] Care Team Providers Care Visitor Services Technician Name Role Phone Deanna Harrison [facility] Primary Care Provider + Allergies No known [...] of 3 - 19+ 3-dose series) 09/01/2015 HPV Vaccines (1 - 3-dose SCD M series) 09/01/2023 COVID-19 Vaccine ( - 2024-2 6 season) 2025 Influenza Adult (#1) 2025 Pneumococcal Vaccine: Pediat rics (0 to 5 Years) and At-Risk Patients (6 to 49 Years) Aged Out 01/06/2019 No longer eligi ble based on patient's age to complete this topic Hepatitis A Vaccines Aged Out No long er eligible based on patient's [...] patient's age to complete this topic Insurance [facility] Advance Directives * Full Code (Latest Code Status on File) Date Activated Date Inactivated Comments 01/12/2019 6:05 PM 01/19/2019 2:31 PM Care Teams Visitor Services Technician Relationship Specialty Start Date End Date Deanna Harrison, TAPE LIBRARIAN- [address] [phone] PCP - General NURSE PRACTITIONER 02/06/19
--- OUTSIDE RECORDS SUMMARY | 2025-04-17 15:29 | XMS_ITS | Clinical Summary ---
Author Organization [facility] [employer] Address [address] [place] [address] Care Team Providers Care Forward Air Controller/Air Officer Name Role Phone Unavailable Primary Care Provider Unavailabl e Source Comments [facility] [employer],non-owned Affiliates and Associated Physician Practices is amultiple site organization consisting of ambulatory clinics and hospital sitesin [place], [place], [place] and [place]. This disclosure is being madepursuant to the Care Everywhere program and may not contain all information available regarding this patient. Last updated 18.[facility] [employer] Allergies No known active allergies Medications * [...] 3 - 19+ 3-dose series) 09/01/2015 HPV VACCINE (1 - 3-dose SCDM series) 09/01/2023 DEPRESSION SCREENING 05/23/2024 COVID-19 VACCINE (1 - 2024-2 6 season) 2025 INFLUENZA VACCINE (#1) 2025 ZOSTER VACCINE (1 [...] ve Non-react danny 01/12/2019 8:32 AM CDT [facility] Comment: Neither HIV-1 p24 Antigen nor HIV-1/HIV-2 Antibodies are detected. Blood BLOOD SPECIMEN / Unknown Lab Venipuncture / Unknown 01/12/2019 7:36 AM CDT 01/12/2019 7:46 AM CDT us Santo Stapleton MD LAB - HEMATOLOGY ORDERABLES Fi nal Result Performing Organization Address City/State/[facility] Co de Phone Number [address] [phone] from Last 3 Months or Most Recently Relevant to Health Maintenance Insurance Advance Directives * Full Code (Latest Code Status on File) Date Activated Date Inactivated Comments 12/28/2018 6:30 AM 01/12/2019 5:50 PM
[2025-04-17 15:33] VITALS: BP 124/62; PULSE 97; RESP 18; TEMP 37; O2SAT 100
[2025-04-17] MEDS: LIDO 1%/EPINEPHRINE 1:100,000 20 ML VIAL 10 ML INFILTRATE (15:51)
--- NOTE | 2025-04-17 16:11 | ED.SKABFB ---
HPI - Skin/Abscess/Foreign Bdy General Chief complaint: Skin/Abscess/Foreign Body Stated complaint: spider bite Time Seen by Provider: 04/17/25 15:30 Source: patient and RN notes reviewed Mode of arrival: ambulatory Limitations: no limitations History of Present Illness HPI narrative: 29-year-old male patient presents today complaining of a 1-2 week history of redness and pain to an area of the left buttock that he believes may be a spider bite. The area continues to worsen. He has wash the area with peroxide and applied antibiotic ointment without improvement. Currently rates his pain 4/10. He has taken 4 doses of leftover cefdinir from a previous pneumonia diagnosis earlier this year. He also states a friend lanced the area out with a, bakari Exacto knife without relief of symptoms. States the area has been draining over the last 3 days. Hx of abscess to the neck a few years ago. Lanced an abscess by himself to the left thigh a few days ago and states it is healing well. Related Data Allergies Allergy/AdvReac Type Severity Reaction Status Date / Time amoxicillin Allergy Mild Rash Verified 04/17/25 15:34 [facility] Social History Social History (Reviewed 04/17/25 @ 17:29 by Dorothy Arshad, MANUAL EQU[employer]MENT MECH[employer]IC, [employer] INSPECTOR) Substance use type: opiates Comments At time of signature, I have reviewed and agree with nursing past medical, surgical, social and family history unless otherwise noted. Please see nursing chart for further information. There is no relevant family history pertinent to the presenting complaint Exam Narrative: GENERAL: Well-appearing, well-nourished, and in no acute distress. HEAD: Normocephalic, atraumatic. EYES: EOMI. No redness or drainage. Conjunctivae normal. ENT: Mucous membranes pink and moist. NECK: Normal AROM. CHEST: No respiratory distress. EXTREMITIES: Normal range of motion. No edema. SKIN: Warm, dry. Capillary refill normal. Normal skin turgor. 1.5x1cm scabbed lesion to the left anterior mid thigh that seems to be healing. NTTP. Left buttock: 3x4 cm area of erythema and fluctuance with tiny hole in the center with thick purulent discharge. TTP. NEURO: No focal deficits. Alert and oriented x3. Gait steady. PSYCH: Normal affect. No signs of depression or anxiety. Course Course Level of Care: Express Care Visit Vital Signs Vital signs: Vital Signs Temperature 98.6 F 04/17/25 15:33 Pulse Rate 97 04/17/25 15:33 Respiratory Rate 18 04/17/25 15:33 Blood Pressure 124/62 04/17/25 15:33 Pulse Oximetry 100 04/17/25 15:33 Oxygen Delivery Room Air 04/17/25 15:33 Temperature 98.6 F 04/17/25 15:33 Pulse Rate 97 04/17/25 15:33 Respiratory Rate 18 04/17/25 15:33 Blood Pressure 124/62 04/17/25 15:33 Pulse Oximetry 100 04/17/25 15:33 Oxygen Delivery Room Air 04/17/25 15:33 reviewed Procedures Abscess I/D other: Date of Incision: 04/17/25 Time of Incision: 15:40 Side (if applicable): left Sedation/analgesia: none Local Anesthetic: lidocaine 1% and with epi Amount of anesthesia used (mL): 5 Technique: other (Removed thick plug from opening) Amount of fluid expressed (mL): 5 Irrigation: Yes Packing used?: none I&D Results: Pus and Blood Abcess I&D Additional Comments: Patient tolerated procedure well. Dressed with bandaid MDM - Skin/Abscess/Foreign Bdy MDM Narrative Medical decision making narrative: 29-year-old male patient presents today complaining of a 1-2 week history of redness and pain to an area of the left buttock that he believes may be a spider bite. The area continues to worsen. He has wash the area with peroxide and applied antibiotic ointment without improvement. Currently rates his pain 4/10. He has taken 4 doses of leftover cefdinir from a previous pneumonia diagnosis earlier this year. He also states a friend lanced the area out with a, bakari Exacto knife without relief of symptoms. States the area has been draining over the last 3 days. Hx of abscess to the neck a few years ago. Lanced an abscess by himself to the left thigh a few days ago and states it is healing well. Upon exam, 1.5x1cm scabbed lesion to the left anterior mid thigh that seems to be healing. NTTP. Left buttock: 3x4 cm area of erythema and fluctuance with tiny hole in the center with thick purulent discharge. TTP. Preparing for I&D, lidocaine was instilled into the central area of the abscess. The thick purulent discharge plug protruded from the hole in the center. This was pulled out and a large amount of bloody purulent discharge resulted from the central hole without need for incision. Flushed this area with NS through the hole. Dressed with bandaid. Patient tolerated procedure with some distress. Would not hold still, jittery. Wound culture obtained. Patient is placed on a course of Bactrim to cover for MRSA due to previous abscess. Vital signs stable. Patient agrees with plan. Anticipatory guidance given. Differential Diagnosis Differential diagnosis: Likely abscess of skin or subcutaneous tissue and cellulitis Critical Care Time Critical Care Time Critical Care Time: No Discharge Plan Discharge Clinical Impression: Left buttock abscess Patient Disposition: Home Condition: Stable Instructions: Antibiotic Form, Abscess (ED), Abscess Incision and Drainage (DC) Additional Instructions: Your abscess has been drained. Wash with soap and water daily. Take the Bactrim as prescribed until gone. Take Tylenol or ibuprofen for pain if needed. Follow-up with your PCP next week if symptoms are not improving. Go to the ER immediately if symptoms worsen to include development of fever greater than 100.3, worsening redness or swelling. Patient Language: Guyanese Prescriptions: New sulfamethoxazole-trimethoprim [Bactrim DS] 800-160 mg tablet 1 tablet PO Q12H 10 Days Qty: 20 0RF No Action cefdinir 300 mg capsule 300 mg PO Q12H 7 Days Qty: 14 0RF Follow-up/Referrals: UNKNOWN,DOCTOR [Primary Care Provider] Time of Disposition: 16:17
--- NOTE | 2025-04-17 16:23 | PC.NURSE ---
1600- asked pt tetanus status. He replied he never had one, does not believe in vaccinations, declined in facility.
== END 2025-04-17 16:21 | disposition home or self-care (01) ==
PROVIDERS: Emergency Provider Nurse Practitioner
DX: L02.31 Cutaneous abscess of buttock (principal)
CPT/HCPCS: 10060; 87070; 87186; 87205; 99213; G0463; J2004